=== PATIENT | male | born 1945 | race Caucasian/White ===

== ENCOUNTER 2017-11-13 18:18 | Emergency (ER) | payer BC, MEDICARE ==
--- NOTE | 2017-11-13 18:31 | EDM.PDOC ---
ED HPI GENERAL MEDICAL PROBLEM - General Chief Complaint: Syncope Stated Complaint: SYNCOPY Time Seen by Provider: 11/13/17 18:20 Source of Information: Reports: Patient History Limitations: Reports: No Limitations - History of Present Illness INITIAL COMMENTS - FREE TEXT/NARRATIVE: Pt is a 72 years old male from [facility], here on a fishing trip.He claims he had a long drive today, got into the resort in town and went to bar and was having some beer and felt dizzy and weak. 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 Then he started to feel better. Pt does have PTSD and is on medical marijuana. he did take his marijuana before he went to drink. No chest pain or tightness. No nausea or vomiting. No blurry vision, weakness in the extremities. no numbness. No fever or chills.Presently in the emergency room he claims he feels fine. But according to she claims that they were drinking beer at the resort and he passed out for about 1-2 minutes and regained consciousness. there was no witnessed seizure activity. When the EMS arrived he was awake and responsive. His vitals were stable and his SPO2 was 95% on room air. His blood sugar was 107mg when [place] the resort. Onset: Today Onset Date: 11/13/17 Onset Time: 17:30 Improves with: Reports: None Worsens with: Reports: None Associated Symptoms: Denies: Confusion, Chest Pain, Cough, Diaphoresis, Fever/ Chills, Headaches, Loss of Appetite, Malaise, Nausea/Vomiting, Rash, Seizure, Shortness of Breath, Syncope, Weakness - Related Data Allergies Allergy/AdvReac Type Severity Reaction Status Date / Time prednisone Allergy Other Verified 11/13/17 18:22 Home Meds: Home Meds . [Unable to Verify Home Med List] 11/13/17 [History] ED ROS GENERAL - Review of Systems Review Of Systems: See Below Constitutional: Denies: Fever, Chills, Fatigue, Night Sweats HEENT: Denies: Rhinitis, Sinus Problem, Throat Pain, Throat Swelling Respiratory: Denies: Shortness of Breath, Wheezing, Cough, Sputum Cardiovascular: Denies: Chest Pain, Lightheadedness Endocrine: Denies: Fatigue GI/Abdominal: Denies: Abdominal Pain, Nausea, Vomiting : Denies: Dysuria, Flank Pain, Frequency, Urgency Musculoskeletal: Denies: Joint Pain, Joint Swelling Skin: Denies: Bruising, Pruritis, Rash Neurological: Denies: Confusion, Dizziness, Headache, Numbness, Tingling, Weakness, Change in Speech, Gait Disturbance ED EXAM, GENERAL - Physical Exam Exam: See Below Exam Limited By: No Limitations General Appearance: Alert, WD/WN, No Apparent Distress Eye Exam: Bilateral Eye: EOMI, PERRL Ears: Normal External Exam, Normal Canal, Hearing Grossly Normal, Normal TMs Ear Exam: Bilateral Ear: Auricle Normal, Canal Normal, TM normal Nose: Normal Inspection, Normal Mucosa, No Blood Throat/Mouth: Normal Inspection, Normal Lips, Normal Teeth, Normal Gums, Normal Oropharynx, Normal Voice, No Airway Compromise Head: Atraumatic, Normocephalic Neck: Normal Inspection, Supple, Non-Tender, Full Range of Motion Respiratory/Chest: No Respiratory Distress, Lungs Clear, Normal Breath Sounds, No Accessory Muscle Use, Chest Non-Tender Cardiovascular: Normal Peripheral Pulses, Regular Rate, Rhythm, No Edema, No Gallop, No JVD, No Murmur, No Rub GI/Abdominal: Normal Bowel Sounds Back Exam: Normal Inspection, Full Range of Motion, NT Extremities: Normal Inspection, Normal Range of Motion, Non-Tender, Normal Capillary Refill, No Pedal Edema Neurological: Alert, Oriented, CN II-XII Intact, Normal Cognition, Normal Gait, Normal Reflexes, No Motor/Sensory Deficits Psychiatric: Normal Mood Skin Exam: Warm, Intact EKG INTERPRETATION EKG Date: 11/13/17 Rhythm: NSR Horner: Normal P-Wave: Present QRS: Normal ST-T: Normal QT: Normal EKG Interpretation Comments: sinus bradycardia Course - Vital Signs Text/Narrative:: Pt's CBC, CMp are normal. His EKG is in sinus rhythm with rate around 55-60. Troponin is negative. CT head is normal. Chest xray is normal. Pt and spouse reassured, that workup is normal. He might have been tired after long drive and felt dizziness or weak. Also pt has not drunk enough fluids through the day , might have had mild hypotensive episode too. Advised goo d hydration and rest. return if symptoms persists. Other ribeiro followup with primary care provider Last Recorded V/S: Last Vital Signs Temp 98 F 11/13/17 18:32 Pulse 59 L 11/13/17 18:32 Resp 12 11/13/17 18:32 BP 143/72 H 11/13/17 18:32 Pulse Ox 95 11/13/17 18:32 - Orders/Labs/Meds Orders: Active Orders 24 hr Category Date Time Status EKG Documentation Completion [RC] ASDIRECTED Care 11/13/17 18:23 Active Chest 1V Frontal [CR] Stat Exams 11/13/17 18:52 Taken Head wo Cont [CT] Stat Exams 11/13/17 18:23 Taken Labs: Laboratory Tests 11/13/17 11/13/17 Range/Units 18:25 18:25 WBC 7.5 (4.0-11.0) K/uL RBC 5.25 (4.50-6.50) M/uL Hgb 15.9 (13.0-18.0) g/dL Hct 47.1 (40.0-54.0) % MCV 90 (76-96) fL MCH 30.3 (27.0-32.0) pg MCHC 33.8 (31.0-35.0) g/dL RDW 12.9 (11.0-16.0) % Plt Count 204 (150-400) K/uL MPV 9.3 (6.0-10.0) fL Neut % (Auto) 65.8 (45.0-70.0) % Lymph % (Auto) 19.8 L (20.0-40.0) % [place] % (Auto) 6.9 (3.0-10.0) % Eos % (Auto) 7.1 H (1.0-5.0) % Baso % (Auto) 0.4 (0.0-0.5) % Neut # (Auto) 4.94 (2.00-7.50) K/uL Lymph # (Auto) 1.49 L (1.50-4.00) K/uL [place] # (Auto) 0.52 (0.20-0.80) K/uL Eos # (Auto) 0.53 H (0.04-0.40) K/uL Baso # (Auto) 0.03 (0.02-0.10) K/uL Sodium 138 (136-145) mmol/L Potassium 3.9 (3.5-5.1) mmol/L Chloride 101 (98-107) mmol/L Carbon Dioxide 25.4 (21.0-32.0) mmol/L Anion Gap 15.5 H (5.0-15.0) mmol/L BUN 23 (8-26) mg/dL Creatinine 1.44 H (0.70-1.30) mg/dL Est Cr Clr Drug Dosing 50.84 mL/min Estimated GFR (MDRD) 48 L (>60) MLS/MIN BUN/Creatinine Ratio 16.0 (6-25) Glucose 134 H (74-100) mg/dL Calcium 8.2 L (8.5-10.1) mg/dL Total Bilirubin 0.7 (0.0-1.0) mg/dL AST 22 (15-37) U/L ALT 39 (12-78) U/L Alkaline Phosphatase 69 (46-116) U/L Troponin I < 0.017 (0.000-0.060) ng/mL Total Protein 6.7 (6.4-8.2) g/dL Albumin 3.9 (3.4-5.0) g/dL Globulin 2.8 (2.2-4.2) g/dL Albumin/Globulin Ratio 1.4 (0.8-2.0) Departure - Departure Time of Disposition: 19:30 Disposition: Home, Self-Care 01 Condition: Fair Clinical Impression: Dizziness, nonspecific - Discharge Information Instructions: Syncope, [id number] Forms: ED Department Discharge Additional Instructions: Continue home meds and increase fluid intake. - Problem List & Annotations (1) Dizziness, nonspecific SNOMED Code(s): 233589977 Code(s): R42 - DIZZINESS AND GIDDINESS Status: Acute - Problem List Review Problem List Initiated/Reviewed/Updated: Yes - My Orders Last 24 Hours: My Active Orders 11/13/17 18:23 EKG Documentation Completion [RC] ASDIRECTED Head wo Cont [CT] Stat 11/13/17 18:52 Chest 1V Frontal [CR] Stat - Assessment/Plan Last 24 Hours: My Active Orders 11/13/17 18:23 EKG Documentation Completion [RC] ASDIRECTED Head wo Cont [CT] Stat 11/13/17 18:52 Chest 1V Frontal [CR] Stat Assessment:: Dizzy episode Plan: Pt's CBC, CMp are normal. His EKG is in sinus rhythm with rate around 55-60. Troponin is negative. CT head is normal. Chest xray is normal. Pt and spouse reassured, that workup is normal. He might have been tired after long drive and felt dizziness or weak. Also pt has not drunk enough fluids through the day , might have had mild hypotensive episode too. Advised goo d hydration and rest. return if symptoms persists. Other ribeiro followup with primary care provider
--- NOTE | 2017-11-15 19:21 | CT ---
DATE OF SERVICE: 11/13/2017 CLINICAL DATA: Presyncope. UNENHANCED BRAIN CT: Multislice acquisition through the brain without IV contrast was performed. No priors. There is diffuse cerebral atrophy. There are periventricular lucencies bilaterally consistent with small vessel ischemic change. There are small lucencies in the basal ganglia bilaterally consistent with old lacunar infarcts. No masses or mass effect. No intracranial hemorrhage. No evidence of acute or subacute infarct. There is minimal mucosal thickening in the ethmoid sinuses consistent with chronic sinusitis. There is a rounded low-density lesion in the left sphenoid sinus consistent with a retention cyst or polyp. IMPRESSION: No acute intracranial abnormalities. [facility]2017 [facility]
--- NOTE | 2017-11-15 19:43 | CR ---
DATE OF SERVICE: 11/13/2017 CLINICAL DATA: Syncope. AP CHEST: No priors. The patient has taken a poor inspiration. The heart size is within normal limits. There is eventration of the left hemidiaphragm and increased density in the left lung base consistent with basilar atelectasis. There is slight blunting of the left costophrenic angle consistent with small left pleural effusion or pleural scar. The right lung is clear. No other significant findings. [id number] [facility]
== END 2017-11-13 19:24 | disposition home or self-care (01) ==
LOC: LB.ED 18:18
DX: R42 Dizziness and giddiness (principal); Z88.8 Allergy status to other drugs, medicaments and biological substances
CPT/HCPCS: 36415; 70450; 71045; 80053; 84484; 85025; 93005; 99284-25; A0425; A0429